=== PATIENT | male | born 2000 | race Caucasian/White ===

== ENCOUNTER 2022-03-15 17:38 | Emergency (ER) | payer BC, SELFPAY ==
[2022-03-15 17:56] VITALS: BP 119/63; PULSE 52; RESP 16; TEMP 37; O2SAT 96; BMI 24.4
[2022-03-15 18:58] LABS: MANUAL DIFF FLAG NO
[2022-03-15 18:59] LABS: Basophils Absolute Auto 0.1 X10*3/uL (0.0-0.2); Basophils Percent Auto 0.5 % (0-2); Eosinophils Absolute Auto 0.1 X10*3/uL (0.0-0.4); Eosinophils Percent Auto 1.2 % (0-4); Hematocrit 41.8 % (42.0-52.0); Hemoglobin 15.1 g/dl (14.0-18.0); Imm Gran Abs Auto 0.03 X10*3/uL (0.00-0.03); Imm Gran Pct Auto 0.2 % (0.0-0.4); Lymphocytes Absolute Auto 1.7 X10*3/uL (1.2-4.9); Lymphocytes Percent Auto 13.8 % (20-40); Mean Corpuscular HGB Conc 36.1 g/dl (31.0-36.0); Mean Corpuscular Hemoglobin 31.9 pg (27.0-33.0); Mean Corpuscular Volume 88.4 fL (80.0-98.0); Mean Platelet Volume 10.4 fL (9.4-12.4); Monocytes Absolute Auto 0.6 X10*3/uL (0.1-1.2); Monocytes Percent Auto 4.7 % (2-11); Neutrophils Absolute Auto 9.6 x10*3/uL (2.0-8.3); Neutrophils Percent Auto 79.6 % (45-73); Platelet Count 246 X10*3/uL (160-400); Red Blood Count 4.73 X10*6/uL (4.60-5.80); Red Cell Distribution Width 11.7 % (11.0-16.0); White Blood Count 12.1 X10*3/uL (4.8-10.8)
[2022-03-15 19:13] LABS: COVID-19 Test Negative (Negative)
--- NOTE | 2022-03-15 19:17 | ED.PSYCH ---
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 Patient reports that he was working over the summer and the money he made over the summer he also gambled away. He reports that this is making him very depressed and he is having thoughts of hurting himself because he cannot control this habit. Although he denies an actual plan. He reports that he smokes marijuana often. Reports that he occasionally drinks alcohol although not a daily alcohol drinker. Denies any other drug usage. Denies being in danger at this time by anyone. He denies owning anyone money at this time. He denies any HI/auditory visualizations. He denies any fevers, chills, headaches, neck pain, sore throat, cough, chest pain or shortness of breath, abdominal pain, nausea/vomiting/diarrhea or constipation, rashes, recent travel or sick contacts or any other symptoms complaints or concerns at this time. <CAMILO Pruett Last Filed: 03/15/22 20:31> MD complaint: suicidal ideation and other (Gambling addiction) <CAMILO Pruett Last Filed: 03/15/22 20:31> Onset (ago): year(s) (1) <CAMILO Pruett - Last Filed: 03/15/22 20:31> Duration: constant and getting worse <CAMILO Pruett Last Filed: 03/15/22 20:31> History of same: No <CAMILO Pruett Last Filed: 03/15/22 20:31> Relieving factors: none <CAMILO Pruett Last Filed: 03/15/22 20:31> Exacerbating factors: other (Gambling mainly with black [employer] and at the [employer]) <CAMILO Pruett Last Filed: 03/15/22 20:31> Context: recent drug abuse <CAMILO Pruett Last Filed: 03/15/22 20:31> Associated psychiatric symptoms: depression, suicidal ideation and racing thoughts <CAMILO Pruett Last Filed: 03/15/22 20:31> Associated symptoms: denies other symptoms <CAMILO Pruett Last Filed: 03/15/22 20:31> Treatments prior to arrival: none <CAMILO Pruett Last Filed: 03/15/22 20:31> If self harm: admits thoughts of self harm <CAMILO Pruett Last Filed: 03/15/22 20:31> Related Data Allergies/Adverse Reactions: Allergies Allergy/AdvReac Type Severity Reaction Status Date / Time No Known Allergies Allergy Verified 03/15/22 17:59 <CAMILO Purett Last Filed: 03/15/22 20:31> Review of Systems Review of Systems: Constitutional : No Fever, No Chills ENT/Mouth : No Ear Pain, No Nasal Congestion, No sore throat Eyes: No Eye Pain, No Swelling, No Redness Cardiovascular : No Chest Pain, No SOB Respiratory : No Cough, No Sputum, No Dyspnea Gastrointestinal : No ingestions, No Nausea, No Vomiting, No Diarrhea, No Hematochezia, No Melena Genitourinary : No Dysuria, No Urinary Frequency, No Hematuria Musculoskeletal : No Myalgias Skin : No Skin Lesions, No rash Neuro : No Weakness, No Numbness, No Paresthesias, No Dizziness, No Headache Psych : + Anxiety, + Depression, + SI, + thoughts of self injury, No HI, No AVH, Heme/Lymph: No Lymphadenopathy Endocrine : No Polyuria, No Polydipsia <CAMILO Pruett - Last Filed: 03/15/22 20:31> Yes all other systems are reviewed and are negative <CAMILO Pruett - Last Filed: 03/15/22 20:31> [facility] Past Medical History Attestation statement: The following information was validated with the patient. <CAMILO Pruett - Last Filed: 03/15/22 20:31> Source: old records reviewed and nursing notes reviewed <CAMILO Pruett - Last Filed: 03/15/22 20:31> Social History Social History: Social History Advance Directives: No Advance Directives Information Provided: Yes <CAMILO Pruett - Last Filed: 03/15/22 20:31> Physical Exam Vital Signs: Vital Signs: Last Vital Signs Temp 98.6 F 03/15/22 17:56 Pulse 52 03/15/22 17:56 Resp 16 03/15/22 17:56 BP 119/63 03/15/22 17:56 Pulse Ox 96 03/15/22 17:56 O2 Del Method 03/15/22 17:56 BMI result Body Mass Index 24.4 vital signs have been reviewed as normal and appeared to be correct. Blood pressure normal. Heart rate normal. Respiration rate normal. Temperature normal. Oxygen saturation normal. <CAMILO Pruett - Last Filed: 03/15/22 20:31> Vital Signs: Last Vital Signs Temp 98.6 F 03/15/22 17:56 Pulse 52 03/15/22 17:56 Resp 16 03/15/22 17:56 BP 119/63 03/15/22 17:56 Pulse Ox 96 03/15/22 17:56 O2 Del Method 03/15/22 17:56 BMI result Body Mass Index 24.4 <Justine Willoughby MD - Last Filed: 03/15/22 23:09> Appearance: Alert. Oriented X3. No acute distress. Head: Normal external exam. Normocephalic. Atraumatic. Eyes: PERRLA. EOMI. Conjunctiva and sclera normal. Eyelids normal. ENT: EAC normal. TM's Normal. Pharynx normal. Uvula midline. Moist mucous membranes. No trismus noted. No drooling noted. No muffled voice noted. Neck: Normal inspection. Neck supple. FROM. No adenopathy. Thyroid Normal. No meningeal signs. No neck mass noted. CVS: Normal heart rate and rhythm. Heart sound normal. No murmurs noted. Pulses normal throughout. Respiratory: No respiratory distress. Painless inspiration. Breath sounds normal. No wheezes/rales/rhonchi noted. Chest nontender. No accessory muscle usage noted or decreased air movement noted. Abdomen: Soft and nontender. Bowel sounds normal in all 4 quadrants. No distention noted. No organomegaly noted. No visible injury noted. Back: No CVA tenderness. Full range of motion noted. Skin: Skin warm and dry. Normal skin color. Normal skin turgor. No rashes/lesions/lacerations noted. Extremities: No lower extremity edema. Extremities exhibit normal range of motion. Extremities nontender. Neuro: Oriented X 3. No motor deficit. No sensory deficit. Reflexes normal. CN's II-XII intact bilaterally? Psych: Appearance grossly normal, well-kept, mental status normal, speech and movement normal, speech clear, normal affect. Is cooperative. Normal thought process. Normal thought content. Normal good insight. Judgment good. 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 Patient reports that he was working over the summer and the money he made over the summer he also gambled away. He reports that this is making him very depressed and he is having thoughts of hurting himself because he cannot control this habit. He reports that he smokes marijuana often. Reports that he occasionally drinks alcohol although not a daily alcohol drinker. Denies any other drug usage. Denies being in danger at this time by anyone. He denies owning anyone money at this time. He denies any HI/auditory visualizations. Labs obtained and patient with elevated white blood cell count at 12,000. Random glucose 122. Otherwise all other labs are within normal limits. COVID swab negative. Therefore at this time patient is placed in Physician observation because the patient is more time to be evaluated by crisis. Will continue to monitor. <CAMILO Pruett - Last Filed: 03/15/22 20:31> Reevaluation(s) Reevaluation #1: Patient was evaluated by [facility]. Patient is not suicidal or homicidal. Patient will be referred for outpatient treatment and partial hospitalization for his gambling addiction. No need a section from the patient. Patient will be discharged home with his father <Justine Willoughby MD - Last Filed: 03/15/22 23:09> Time: 23:08 <Justine Willoughby MD - Last Filed: 03/15/22 23:09> MDM - Psych Medical Records Attestation: I reviewed the patient's medical records. <CAMILO Pruett - Last Filed: 03/15/22 20:31> Lab Data Attestation: I reviewed the patient's lab results. <CAMILO Pruett - Last Filed: 03/15/22 20:31> Result diagrams: : 03/15/22 18:53 03/15/22 18:53 <CAMILO Pruett - Last Filed: 03/15/22 20:31> Labs: Lab Results 03/15/22 03/15/22 03/15/22 Range/Units 18:53 18:53 18:53 WBC 12.1 H (4.8-10.8) X10*3/uL RBC 4.73 (4.60-5.80) X10*6/uL Hgb 15.1 (14.0-18.0) g/dl Hct 41.8 L (42.0-52.0) % MCV 88.4 (80.0-98.0) fL MCH 31.9 (27.0-33.0) pg MCHC 36.1 H (31.0-36.0) g/dl RDW 11.7 (11.0-16.0) % Plt Count 246 (160-400) X10*3/uL MPV 10.4 (9.4-12.4) fL Immature Gran % (Auto) 0.2 (0.0-0.4) % Neut % (Auto) 79.6 H (45-73) % Lymph % (Auto) 13.8 L (20-40) % [place] % (Auto) 4.7 (2-11) % Eos % (Auto) 1.2 (0-4) % Baso % (Auto) 0.5 (0-2) % Lymph # (Auto) 1.7 (1.2-4.9) X10*3/uL [place] # (Auto) 0.6 (0.1-1.2) X10*3/uL Eos # (Auto) 0.1 (0.0-0.4) X10*3/uL Baso # (Auto) 0.1 (0.0-0.2) X10*3/uL Abs Immat Gran (auto) 0.03 (0.00-0.03) X10*3/uL Absolute Neuts (auto) 9.6 H (2.0-8.3) x10*3/uL Absolute Nucleated RBC 0.000 (0.0-0.012) X10*3/uL Nucleated RBC % (auto) 0.0 (0.0-0.2) /100WBC Sodium 140 (135-145) mmol/L Potassium 3.7 (3.3-5.1) mmol/L Chloride 100 (96-108) mmol/L Carbon Dioxide 29 (22-29) mmol/L Anion Gap 15 (12-20) BUN 10 (9-16) mg/dL Creatinine 0.97 (0.5-1.4) mg/dL Estim Creat Clear Calc 127.2 Estimated GFR > 60 Random Glucose 122 H (60-115) mg/dL Calcium 10.0 (8.4-10.2) mg/dL Magnesium 1.7 (1.6-2.6) mg/dL Total Bilirubin 2.2 H (0.0-1.0) mg/dL Direct Bilirubin 0.6 H (0.0-0.5) mg/dL AST 20 (5-37) U/L ALT 14 (0-40) U/L Alkaline Phosphatase 53 (39-117) U/L Total Protein 7.7 (6.5-8.0) g/dL Albumin 4.7 (3.5-5.0) g/dL Urine Opiates Screen (Not Detect) Urine Fentanyl Screen (Not Detect) Ur Barbiturates Screen (Not Detect) Ur Phencyclidine Scrn (Not Detect) Ur Amphetamines Screen (Not Detect) U Benzodiazepines Scrn (Not Detect) Urine Cocaine Screen (Not Detect) U Marijuana (THC) Screen (Not Detect) Ethyl Alcohol < 10 mg/dL COVID-19 ([place]) Negative (Negative) COVID-19 Clin Com See Note 03/15/22 Range/Units 20:37 WBC (4.8-10.8) X10*3/uL RBC (4.60-5.80) X10*6/uL Hgb (14.0-18.0) g/dl Hct (42.0-52.0) % MCV (80.0-98.0) fL MCH (27.0-33.0) pg MCHC (31.0-36.0) g/dl RDW (11.0-16.0) % Plt Count (160-400) X10*3/uL MPV (9.4-12.4) fL Immature Gran % (Auto) (0.0-0.4) % Neut % (Auto) (45-73) % Lymph % (Auto) (20-40) % [place] % (Auto) (2-11) % Eos % (Auto) (0-4) % Baso % (Auto) (0-2) % Lymph # (Auto) (1.2-4.9) X10*3/uL [place] # (Auto) (0.1-1.2) X10*3/uL Eos # (Auto) (0.0-0.4) X10*3/uL Baso # (Auto) (0.0-0.2) X10*3/uL Abs Immat Gran (auto) (0.00-0.03) X10*3/uL Absolute Neuts (auto) (2.0-8.3) x10*3/uL Absolute Nucleated RBC (0.0-0.012) X10*3/uL Nucleated RBC % (auto) (0.0-0.2) /100WBC Sodium (135-145) mmol/L Potassium (3.3-5.1) mmol/L Chloride (96-108) mmol/L Carbon Dioxide (22-29) mmol/L Anion Gap (12-20) BUN (9-16) mg/dL Creatinine (0.5-1.4) mg/dL Estim Creat Clear Calc Estimated GFR Random Glucose (60-115) mg/dL Calcium (8.4-10.2) mg/dL Magnesium (1.6-2.6) mg/dL Total Bilirubin (0.0-1.0) mg/dL Direct Bilirubin (0.0-0.5) mg/dL AST (5-37) U/L ALT (0-40) U/L Alkaline Phosphatase (39-117) U/L Total Protein (6.5-8.0) g/dL Albumin (3.5-5.0) g/dL Urine Opiates Screen Not Detected (Not Detect) Urine Fentanyl Screen Not Detected (Not Detect) Ur Barbiturates Screen Not Detected (Not Detect) Ur Phencyclidine Scrn Not Detected (Not Detect) Ur Amphetamines Screen Not Detected (Not Detect) U Benzodiazepines Scrn Not Detected (Not Detect) Urine Cocaine Screen Not Detected (Not Detect) U Marijuana (THC) Screen POSITIVE H (Not Detect) Ethyl Alcohol mg/dL COVID-19 ([place]) (Negative) COVID-19 Clin Com <CAMILO Pruett - Last Filed: 03/15/22 20:31> Lab Results 03/15/22 03/15/22 03/15/22 Range/Units 18:53 18:53 18:53 WBC 12.1 H (4.8-10.8) X10*3/uL RBC 4.73 (4.60-5.80) X10*6/uL Hgb 15.1 (14.0-18.0) g/dl Hct 41.8 L (42.0-52.0) % MCV 88.4 (80.0-98.0) fL MCH 31.9 (27.0-33.0) pg MCHC 36.1 H (31.0-36.0) g/dl RDW 11.7 (11.0-16.0) % Plt Count 246 (160-400) X10*3/uL MPV 10.4 (9.4-12.4) fL Immature Gran % (Auto) 0.2 (0.0-0.4) % Neut % (Auto) 79.6 H (45-73) % Lymph % (Auto) 13.8 L (20-40) % [place] % (Auto) 4.7 (2-11) % Eos % (Auto) 1.2 (0-4) % Baso % (Auto) 0.5 (0-2) % Lymph # (Auto) 1.7 (1.2-4.9) X10*3/uL [place] # (Auto) 0.6 (0.1-1.2) X10*3/uL Eos # (Auto) 0.1 (0.0-0.4) X10*3/uL Baso # (Auto) 0.1 (0.0-0.2) X10*3/uL Abs Immat Gran (auto) 0.03 (0.00-0.03) X10*3/uL Absolute Neuts (auto) 9.6 H (2.0-8.3) x10*3/uL Absolute Nucleated RBC 0.000 (0.0-0.012) X10*3/uL Nucleated RBC % (auto) 0.0 (0.0-0.2) /100WBC Sodium 140 (135-145) mmol/L Potassium 3.7 (3.3-5.1) mmol/L Chloride 100 (96-108) mmol/L Carbon Dioxide 29 (22-29) mmol/L Anion Gap 15 (12-20) BUN 10 (9-16) mg/dL Creatinine 0.97 (0.5-1.4) mg/dL Estim Creat Clear Calc 127.2 Estimated GFR > 60 Random Glucose 122 H (60-115) mg/dL Calcium 10.0 (8.4-10.2) mg/dL Magnesium 1.7 (1.6-2.6) mg/dL Total Bilirubin 2.2 H (0.0-1.0) mg/dL Direct Bilirubin 0.6 H (0.0-0.5) mg/dL AST 20 (5-37) U/L ALT 14 (0-40) U/L Alkaline Phosphatase 53 (39-117) U/L Total Protein 7.7 (6.5-8.0) g/dL Albumin 4.7 (3.5-5.0) g/dL Urine Opiates Screen (Not Detect) Urine Fentanyl Screen (Not Detect) Ur Barbiturates Screen (Not Detect) Ur Phencyclidine Scrn (Not Detect) Ur Amphetamines Screen (Not Detect) U Benzodiazepines Scrn (Not Detect) Urine Cocaine Screen (Not Detect) U Marijuana (THC) Screen (Not Detect) Ethyl Alcohol < 10 mg/dL COVID-19 ([place]) Negative (Negative) COVID-19 Clin Com See Note 03/15/22 Range/Units 20:37 WBC (4.8-10.8) X10*3/uL RBC (4.60-5.80) X10*6/uL Hgb (14.0-18.0) g/dl Hct (42.0-52.0) % MCV (80.0-98.0) fL MCH (27.0-33.0) pg MCHC (31.0-36.0) g/dl RDW (11.0-16.0) % Plt Count (160-400) X10*3/uL MPV (9.4-12.4) fL Immature Gran % (Auto) (0.0-0.4) % Neut % (Auto) (45-73) % Lymph % (Auto) (20-40) % [place] % (Auto) (2-11) % Eos % (Auto) (0-4) % Baso % (Auto) (0-2) % Lymph # (Auto) (1.2-4.9) X10*3/uL [place] # (Auto) (0.1-1.2) X10*3/uL Eos # (Auto) (0.0-0.4) X10*3/uL Baso # (Auto) (0.0-0.2) X10*3/uL Abs Immat Gran (auto) (0.00-0.03) X10*3/uL Absolute Neuts (auto) (2.0-8.3) x10*3/uL Absolute Nucleated RBC (0.0-0.012) X10*3/uL Nucleated RBC % (auto) (0.0-0.2) /100WBC Sodium (135-145) mmol/L Potassium (3.3-5.1) mmol/L Chloride (96-108) mmol/L Carbon Dioxide (22-29) mmol/L Anion Gap (12-20) BUN (9-16) mg/dL Creatinine (0.5-1.4) mg/dL Estim Creat Clear Calc Estimated GFR Random Glucose (60-115) mg/dL Calcium (8.4-10.2) mg/dL Magnesium (1.6-2.6) mg/dL Total Bilirubin (0.0-1.0) mg/dL Direct Bilirubin (0.0-0.5) mg/dL AST (5-37) U/L ALT (0-40) U/L Alkaline Phosphatase (39-117) U/L Total Protein (6.5-8.0) g/dL Albumin (3.5-5.0) g/dL Urine Opiates Screen Not Detected (Not Detect) Urine Fentanyl Screen Not Detected (Not Detect) Ur Barbiturates Screen Not Detected (Not Detect) Ur Phencyclidine Scrn Not Detected (Not Detect) Ur Amphetamines Screen Not Detected (Not Detect) U Benzodiazepines Scrn Not Detected (Not Detect) Urine Cocaine Screen Not Detected (Not Detect) U Marijuana (THC) Screen POSITIVE H (Not Detect) Ethyl Alcohol mg/dL COVID-19 ([place]) (Negative) COVID-19 Clin Com <Justine Willoughby MD - Last Filed: 03/15/22 23:09> Discharge Plan Discharge Clinical Impression: Addictive gambling, Depression, Acute anxiety <CAMILO Pruett - Last Filed: 03/15/22 20:31> Patient Disposition: Home, Self-Care <CAMILO Pruett - Last Filed: 03/15/22 20:31> Instructions: Anxiety (ED) <CAMILO Pruett - Last Filed: 03/15/22 20:31> Additional Instructions: Please follow-up with your primary care physician tomorrow. If you have any worsening or new symptoms, please return to the emergency room or call 911 <CAMILO Pruett - Last Filed: 03/15/22 20:31>
[2022-03-15 19:27] LABS: Anion Gap 15 (12-20); Blood Urea Nitrogen 10 mg/dL (9-16); Carbon Dioxide 29 mmol/L (22-29); Chloride 100 mmol/L (96-108); Creatinine Clr Calc Pharmacy 127.2; Estimated Glomerular Filt Rate > 60; Glucose Random 122 mg/dL (60-115); Potassium 3.7 mmol/L (3.3-5.1); Sodium 140 mmol/L (135-145)
[2022-03-15 20:08] LABS: Alanine Aminotransferase 14 U/L (0-40); Albumin Level 4.7 g/dL (3.5-5.0); Alkaline Phosphatase 53 U/L (39-117); Aspartate Amino Transferase 20 U/L (5-37); Bilirubin Direct 0.6 mg/dL (0.0-0.5); Bilirubin Total 2.2 mg/dL (0.0-1.0); Ethanol < 10 mg/dL; Magnesium 1.7 mg/dL (1.6-2.6); Total Protein 7.7 g/dL (6.5-8.0)
[2022-03-15 20:59] LABS: Amphetamine Screen Urine Not Detected (Not Detect); Barbiturates, Urine Not Detected (Not Detect); Benzodiazepines Screen Urine Not Detected (Not Detect); Cannabinoid Screen Urine POSITIVE (Not Detect); Cocaine Screen Urine Not Detected (Not Detect); Fentanyl, urine Not Detected (Not Detect); Opiate Screen Urine Not Detected (Not Detect); Phencyclidine Screen Urine Not Detected (Not Detect)
--- NOTE | 2022-03-16 00:01 | MHC.CARE ---
Patient is a 21 year old Hungarian speaking male who presented to [facility] with an gambling addiction. He reported spending over 20,000 in the past year. Pt mentioned living with his father due to mother being unable to understand the patient's behavior and not being able to help him.? Patient appears hopeless and helpless due to his?reported?addiction. He mentioned struggling with anxiety and depression due to losing?it all within the last year. He reported skipping meals due not having much of an appetite. Patient stated he sleeps a lot and feels unmotivated. He reported SI with no plan or intent.?He denied HI and AVH. However, the patient reported having negative thoughts sometimes but it only happens when he loses.? Patients stated he started gabbling approximately a year and a half ago when his girlfriend dumped him. He reported he struggles with making friends and kind of pushes everyone away. Pt's SI and depression is in the context of his worsening addiction and is exasperated by his addiction. CARE Team spoke to his father who reports pt is always obsessed with something and shares that pt had previously been obsessed with golf. He states that pt is impulsive and has had outbursts throughout his life. He mentioned that pt has always been anxious as a kid and has always been fixated on money. He states he has always had sx's of OCD. He states that pt?is obsessed with washing his hands and had been obsessed with golf for awhile until his?gambling addiction came along. Pt himself agrees he stated his father would make comments so he tried to?occupy himself with something else and became addicted.? He denies any family psychiatric hx. Pt will best benefit from a [facility] referral?for diagnostic clarification. Pt appears to have a long hx of an underlined anxiety dx. Having a diagnostic?clarification will better help address his sx's. He was provided with gambling addiction resources and partial information.?
== END 2022-03-15 23:23 | disposition home or self-care (01) ==
PROVIDERS: Physician Assistant Medical; Emergency Provider Emergency Medicine Emergency Medical Services; PCP Pediatrics
DX: F32.A Depression, unspecified (principal); F41.9 Anxiety disorder, unspecified; R45.851 Suicidal ideations; Z72.6 Gambling and betting; Z20.822 Contact with and (suspected) exposure to COVID-19; F19.10 Other psychoactive substance abuse, uncomplicated; F12.90 Cannabis use, unspecified, uncomplicated
CPT/HCPCS: 80048; 80076; 80307; 82077; 83735; 85025; 87635; 99282; 99284

== ENCOUNTER 2023-04-28 11:30 | Emergency (ER) | payer BC, SELFPAY ==
--- NOTE | ~2023-04-28 | XR_ITS ---
EXAMINATION: XR ANKLE. LEFT XR FOOT, LEFT CLINICAL INFORMATION: Fall, pain. COMPARISON: None available. TECHNIQUE: 2 views of the left ankle. 3 views of the left foot. FINDINGS: LEFT ANKLE: Ankle mortise is preserved. Bone mineralization is normal. Ankle joint effusion with soft tissue swelling. LEFT FOOT: Radiopaque marker placed by technologist to indicate area of concern as indicated by the patient lateral to the base of the 5th metatarsal. Small 3 mm ossicle lateral to the IP joint of the great toe. A 0.7 cm cystic lucency projecting over the cuneiforms. The joint spaces are maintained. XR/XR foot LT min 3V IMPRESSION: 1. Joint effusion at the ankle. 2. No displaced fracture of the 5th metatarsal and ankle. Recommend follow-up imaging in 10-14 days if fracture is suspected. Additional imaging with CT scan or MRI should be considered for better visualization as these modalities are much more sensitive for detection of fracture or other underlying pathology. This study was presented today 04/28/2023 at 12:54 PM for interpretation. STAT results provided to referring provider as requested.
--- NOTE | ~2023-04-28 | XR_ITS ---
EXAMINATION: XR ANKLE. LEFT XR FOOT, LEFT CLINICAL INFORMATION: Fall, pain. COMPARISON: None available. TECHNIQUE: 2 views of the left ankle. 3 views of the left foot. FINDINGS: LEFT ANKLE: Ankle mortise is preserved. Bone mineralization is normal. Ankle joint effusion with soft tissue swelling. LEFT FOOT: Radiopaque marker placed by technologist to indicate area of concern as indicated by the patient lateral to the base of the 5th metatarsal. Small 3 mm ossicle lateral to the IP joint of the great toe. A 0.7 cm cystic lucency projecting over the cuneiforms. The joint spaces are maintained. XR/XR ankle LT min 3V IMPRESSION: 1. Joint effusion at the ankle. 2. No displaced fracture of the 5th metatarsal and ankle. Recommend follow-up imaging in 10-14 days if fracture is suspected. Additional imaging with CT scan or MRI should be considered for better visualization as these modalities are much more sensitive for detection of fracture or other underlying pathology. This study was presented today 04/28/2023 at 12:54 PM for interpretation. STAT results provided to referring provider as requested.
--- NOTE | 2023-04-28 12:10 | ED.GENADULT ---
HPI - General Adult General Chief complaint: Extremity Injury, Lower Stated complaint: L ankle inj Time Seen by Provider: 04/28/23 15:16 Related Data Previous Rx's Medication Instructions Recorded acetaminophen 325 mg capsule 325 mg PO QID PRN pain 7 days #28 04/28/23 caps naproxen 500 mg tablet 500 mg PO BID PRN pain 7 days #14 04/28/23 tabs prednisone 20 mg tablet 40 mg (2 x 20 mg) PO DAILY 5 days 04/28/23 #10 tabs Allergies Allergy/AdvReac Type Severity Reaction Status Date / Time No Known Allergies Allergy Verified 03/15/22 17:59 [facility] Social History Social History Smoked in Last 30 Days: No Use of substances other than those prescribed or required for medical reasons: No Advance Directives: No Advance Directives Information Provided: No Physical Exam ED Vital Signs: Vital Signs - 24 hr 04/28/23 12:12 04/28/23 16:00 04/28/23 17:38 Temperature 97.8 F 98.2 F Pulse Rate 63 66 Respiratory Rate 16 18 16 Blood Pressure 121/70 106/60 Pulse Oximetry 97 98 Oxygen Delivery Method Room Air Room Air BMI result Body Mass Index 26.5 Course Course Course Narrative: RME performed by Anjelica Miranda PA-C. Patient is a 22 year old assigned male at presenting to the emergency department with left ankle pain. Imaging ordered. Patient placed back in the waiting room pending room availability and results. Patient was evaluated and dispositioned by Dr. Willoughby who wrote and completed her own note. Please refer to her note for information regarding the patient's 04/28/2023 visit. Medications Administered Discontinued Medications Generic Name Dose Route Start Last Admin Trade Name Freq PRN Reason Stop Dose Admin Acetaminophen 975 mg 04/28/23 15:53 04/28/23 16:24 Acetaminophen 325 Mg Tablet PO 04/28/23 15:54 975 mg ONCE ONE Administration Prednisone 40 mg 04/28/23 15:53 04/28/23 16:24 Prednisone 20 Mg Tablet PO 04/28/23 15:54 40 mg ONCE ONE Administration Discharge Plan Discharge Clinical Impression: Ankle sprain and strain Patient Disposition: Home, Self-Care Instructions: Ankle Sprain (ED), Crutch Instructions (ED), How to Use an Elastic Bandage (ED), R.I.C.E. Treatment (ED), Cold Compress or Soak (ED) Additional Instructions: You're ankle x-ray showed joint effusion after trauma. you will need an MRI to evaluate for possible ligament tendon injury. Please follow-up with orthopedic surgeon or your primary care provider. Recommend rest, elevation, and ice. Return to the ED immediately for blue/discoloration, numbness /tingling, coldness, redness, severe pain, fever, chills, calf pain, or any other concerning symptoms. Prescriptions: New prednisone 20 mg tablet 40 mg PO DAILY 5 Days Qty: 10 0RF naproxen 500 mg tablet 500 mg PO BID PRN (Reason: pain) 7 Days Qty: 14 0RF acetaminophen 325 mg capsule 325 mg PO QID PRN (Reason: pain) 7 Days Qty: 28 0RF Referrals: [facility] Orthopedic Surgeons [Provider Group] (LEft ankle sprain. possible ligament injury. NEeds MRI) Stand Alone Forms: Work/School Release Interventions: ED Discharge Assessment Last Done: 04/28/23 17:43 Discharge Date/Time: 04/28/23 17:45 Print Language: Israeli
[2023-04-28 12:12] VITALS: BP 121/70; PULSE 63; RESP 16; TEMP 36.6; O2SAT 97; BMI 26.5
--- NOTE | 2023-04-28 15:55 | ED_ITS ---
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 Patient denies any head or any other trauma. Patient denies any prior history of injuries to left lower extremity. Related Data Previous Rx's Medication Instructions Recorded acetaminophen 325 mg capsule 325 mg PO QID PRN pain 7 days #28 04/28/23 caps naproxen 500 mg tablet 500 mg PO BID PRN pain 7 days #14 04/28/23 tabs prednisone 20 mg tablet 40 mg (2 x 20 mg) PO DAILY 5 days 04/28/23 #10 tabs Allergies Allergy/AdvReac Type Severity Reaction Status Date / Time No Known Allergies Allergy Verified 03/15/22 17:59 Review of Systems 2 Review of Systems: Left ankle foot pain Yes all other systems are reviewed and are negative Physical Exam ED Vital Signs: Vital Signs - 24 hr 04/28/23 16:00 04/28/23 17:38 Temperature 98.2 F Pulse Rate 66 Respiratory Rate 18 16 Blood Pressure 106/60 Pulse Oximetry 98 Oxygen Delivery Method Room Air BMI result Body Mass Index 26.5 Const General: cooperative, healthy appearing, comfortable, no acute distress, well developed, alert, awake and Physically active Orientation/consciousness: oriented to person, oriented to place, oriented to time and patient oriented x3 HENMT Head: Yes normal to inspection, Yes No palpable skull fracture present, Yes normocephalic, Yes atraumatic and No abrasion Ears: hearing grossly normal bilaterally, external ears normal, TM's normal bilaterally, TM normal on the right, TM normal on the left, EAC's normal, mastoids normal and no periauricular adenopathy Eyes General: appearance normal, both eyes and all related structures Neck Neck: Yes normal visual inspection, Yes full ROM, Yes no lymphadenopathy, Yes no meningeal signs, Yes trachea midline, Yes supple, No anterior neck swelling and No tender Chest Chest palpation & inspection: normal inspection of the chest and normal palpation of entire chest wall Resp Effort & Inspection: normal respiratory effort and able to speak in complete sentences Cardio Jugular venous distension: no JVD Heart sounds: S1 normal heart sound present and S2 normal heart sound present GI Inspection: Yes normal to inspection and No abdominal wall ecchymosis Palpation (GI): Soft to palpation, not firm, nontender, no guarding and not rigid General: No CVA tenderness and Yes no CVA tenderness Back/Spine/Pelvis Back: no CVA tenderness, No CVA tenderness and No back tenderness Skin General skin exam: no rashes or lesions noted, elasticity normal and turgor normal Neuro General: oriented to person, oriented to place, oriented to time, patient oriented x3, tone normal, moves all extremities, Normal light touch and pain sensation, no meningeal signs, no focal motor deficits, CN's II-XI intact bilaterally and normal sensation to monofilament Extrem General: Yes normal to inspection and Yes full ROM Ankle/foot/toe images: 2 1. positive for tenderness and slight swelling on palpation. Negative for crepitus or deformity. Mild ecchymosis. Motor/ neuro/vascular exam intact 2. positive for tenderness and slight swelling on palpation. Negative for crepitus or deformity. Mild ecchymosis. Motor/ neuro/vascular exam intact Psych Appearance: grossly normal, well kempt and not disheveled Medications Administered Discontinued Medications Generic Name Dose Route Start Last Admin Trade Name Cesarq PRN Reason Stop Dose Admin Acetaminophen 975 mg 04/28/23 15:53 04/28/23 16:24 Acetaminophen 325 Mg Tablet PO 04/28/23 15:54 975 mg ONCE ONE Administration Prednisone 40 mg 04/28/23 15:53 04/28/23 16:24 Prednisone 20 Mg Tablet PO 04/28/23 15:54 40 mg ONCE ONE Administration Medical Decision Making Medical Decision Making [facility] Narrative: 22-year-old male presents to ED for 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 Patient twisted ankle. Patient denies any trauma to the head any blunt trauma to the body. Patient states no fever chills chest pain or shortness of breath. Patient states no other complaints. X-rays negative for fracture. Patient placed in [place] wrap and crutches. Patient informed to follow up with Orthopedic most likely for MRI due to fusion of joint after trauma. Ankle not septic no need for aspiration. Differential Diagnosis Differential Diagnoses: The differential diagnosis associated with the presentation includes ( Ankle sprain, ankle fracture, foot fracture, foot sprain, ankle dislocation) Admission/Observation Consideration of admission/observation: Escalation of care including admission/observation considered Independent Interpretation I performed an independent interpretation of an: Plain X-Ray Radiology Impression Discussion of test interpretation with radiology: I have reviewed the radiologist's reading. Independent Historian Clinical information obtained from an independent historian. History obtained from or confirmed by: Parent ( mother) External Record Review External record reviewed: Other ( prior ED visit) Prescription Management I considered prescription management with: Pain Medication and Other (Steroids) Discharge Plan Discharge Clinical Impression: Ankle sprain and strain Patient Disposition: Home, Self-Care Instructions: Ankle Sprain (ED), Crutch Instructions (ED), How to Use an Elastic Bandage (ED), R.I.C.E. Treatment (ED), Cold Compress or Soak (ED) Additional Instructions: You're ankle x-ray showed joint effusion after trauma. you will need an MRI to evaluate for possible ligament tendon injury. Please follow-up with orthopedic surgeon or your primary care provider. Recommend rest, elevation, and ice. Return to the ED immediately for blue/discoloration, numbness /tingling, coldness, redness, severe pain, fever, chills, calf pain, or any other concerning symptoms. Prescriptions: New prednisone 20 mg tablet 40 mg PO DAILY 5 Days Qty: 10 0RF naproxen 500 mg tablet 500 mg PO BID PRN (Reason: pain) 7 Days Qty: 14 0RF acetaminophen 325 mg capsule 325 mg PO QID PRN (Reason: pain) 7 Days Qty: 28 0RF Referrals: [facility] Orthopedic Surgeons [Provider Group] (LEft ankle sprain. possible ligament injury. NEeds MRI) Stand Alone Forms: Work/School Release Interventions: ED Discharge Assessment Last Done: 04/28/23 17:43 Discharge Date/Time: 04/28/23 17:45 Print Language: Armenian
[2023-04-28 16:00] VITALS: RESP 18
[2023-04-28] MEDS: Acetaminophen 325 MG TABLET 975 MG PO (16:24)
[2023-04-28] MEDS: predniSONE 20 MG TABLET 40 MG PO (16:24)
[2023-04-28 17:38] VITALS: BP 106/60; PULSE 66; RESP 16; TEMP 36.8; O2SAT 98
== END 2023-04-28 17:45 | disposition home or self-care (01) ==
PROVIDERS: Emergency Provider Emergency Medicine
DX: S93.402A Sprain of unspecified ligament of left ankle, initial encounter (principal); S96.912A Strain of unspecified muscle and tendon at ankle and foot level, left foot, initial encounter; W50.0XXA Accidental hit or strike by another person, initial encounter; Y93.9 Activity, unspecified; Y92.9 Unspecified place or not applicable; Y99.9 Unspecified external cause status
CPT/HCPCS: 73610; 73630; 99283; 99284

== ENCOUNTER 2023-05-07 11:07 | Outpatient (AMB) | payer BC, SELFPAY ==
[2023-05-07 11:22] VITALS: BMI 26.4
--- NOTE | 2023-05-07 11:22 | MHC.OFFVIS ---
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 He presented to [facility] ED that same day where xrays were taken, given an jose luis wrap and crutches. Currently has stiffness in ankle and is only able to bear minimal weight. States at rest his pain level is 2-3 out of 10 and with movement or any pressure his pain level increases to a 6 out of 10. Finds little relief with naproxen and Tylenol. He was prescribed prednisone at ED but was unable to take. Allergies No Known Allergies Allergy (Verified 05/07/23 11:22) HPI Information Technology Coordinator- Right ankle sprain HPI Details 22-year-old male who presents to the office today for an ER follow-up of left ankle injury s/p jumping and landing on another student?s foot while playing a game causing his ankle to twist inwardly, 04/28/23. He was seen at ED the same day where x-rays were performed and he was given an JOSE LUIS wrap and crutches. He states he has pain and stiffness in his ankle and he is able to bear minimal weight. He rates the pain as 3 on the scale of 0-10 at rest which increases to 6 with movement or pressure. He was prescribed prednisone at ED but was unable to take. He finds mild relief with naproxen and Tylenol. [facility] Social History (Updated 05/07/23 @ 11:30 by Gayla Pierre Daniel) Current occupational status: employed Current occupation: [employer] Review of Systems Const All systems reviewed & are unremarkable except as noted in HPI and below Physical Exam Vital Signs: BMI result Body Mass Index 26.4 Const General: cooperative, healthy appearing, comfortable, no acute distress, well developed and alert Orientation/consciousness: patient oriented x3 HEENT Head: Yes normal to inspection, Yes normocephalic and Yes atraumatic Eyes General: appearance normal, both eyes and all related structures Resp Effort & Inspection: normal respiratory effort and able to speak in complete sentences Cardio Rate: regular rate Peripheral pulses: Peripheral pulses 2+ throughout GI Palpation (GI): Soft to palpation Skin Lesions: no lesions Rashes: no rashes Neuro General: patient oriented x3 Extrem Other: Left ankle: Normal to inspection with diffuse swelling throughout the foot extending up into the lateral aspect of the ankle. Mild discomfort along the ATFL, no deformity along the Achilles tendon, negative Murillo?s. No pain along the syndesmosis or anterior tibia. No laxity, NVI. Results Reviewed Results Reviewed: xrays of the left foot and ankle obtained in the ED on 04/28/23 are negative for acute fracture or dislocations. Ankle mortise intact. Assessment & Plan Assessment & Plan (1) Left ankle sprain: Code(s): S93.402A - Sprain of unspecified ligament of left ankle, initial encounter Qualifiers: Encounter type: initial encounter Involved ligament of ankle: anterior talofibular ligament Qualified Code(s): S93.492A - Sprain of other ligament of left ankle, initial encounter Plan He was fit for a tall boot weight bearing as tolerated. He is to wear this only with walking. He can remove the boot for hygiene and for icing, elevation and therapy exercises. I did also give him a lace up ankle brace in the office which he will transition to in the next 2 weeks. He was also given an order for physical therapy to work on ROM, gentle strengthening and proprioceptive training. He will gradually increase activity as tolerated and if symptoms persist or worsens, patient will contact the office, otherwise follow-up as needed. Orders: Orders PT Evaluation and Treatment Today S93.402A - Sprain of unspecified ligament of left ankle, initial encounter Patient Instructions: Scribed for Shilpi Ceja PA-C, by Franky Llanes manager medical writing, on 05/07/2023 at 11:15 AM EST. Shilpi Samaniego PA-C, have personally reviewed and agree with the information entered by the scribe. Coding Level of Care Code New Pt Level 3 (84102) Diagnoses Sprain of anterior talofibular ligament of left ankle, initial encounter S93.492A Encounter type: initial encounter Involved ligament of ankle: anterior talofibular ligament
== END 2023-05-07 12:20 | disposition home or self-care (01) ==
PROVIDERS: Visit Provider Physician Assistant
DX: S93.492A Sprain of other ligament of left ankle, initial encounter (principal)
CPT/HCPCS: 99203

== ENCOUNTER → 2023-05-07 11:07 | Outpatient (BNVA) | payer BC, SELFPAY | PROVIDERS: Visit Provider Physician Assistant ==